=== PATIENT | female | born 1995 ===

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

== ENCOUNTER 2017-02-27 18:40 | Emergency (ER) | payer OTHER ==
--- NOTE | 2017-03-02 06:04 | ER ---
ADMIT: 02/27/2017 RM/LOC: ER [facility] MR#: [id number] [address] [id number] SAMANTHA FORTUNE [address] [place] [address] Emergency Room Report SEX: F AGE: 21 : 1995 CORRECTED: 02/28/2017 0701 NJV DATE: 02/27/2017 HISTORY OF PRESENT ILLNESS: The patient is a 21-year-old female who presents to the emergency room with low abdominal pain, 14 weeks' , one day with cramping and pressure. PHYSICAL EXAMINATION: VITAL SIGNS: Blood pressure 131/75, pulse 89, respirations 16, temperature 98.3, and O2 saturations 99%. Her expected date of confinement is 08/31/2017. She is 3, para 1, and 1. MEDICATIONS: She is taking multivitamins. ALLERGIES: TO PENICILLIN. PAST MEDICAL HISTORY: She has had a tonsillectomy as part of her past medical history and her blood type is O positive. PHYSICAL EXAMINATION: I do not see any vaginal discharge, although I did do a wet mount and Gen-Probe, low abdomen tenderness on palpation. EXTREMITIES: Well perfused. VAGINAL: External exam within normal limits. Speculum exam normal as well. NEURO: Oriented x4. test urine, positive. Wet mount; no clue cells, no Trichomonas, urobilinogen 4.0, leukocyte esterase trace, and hazy urine. Advised to increase fluids, take antibiotics for 7 days, follow up with Dr. Boyle for recheck of the urine again. heart tones are 154. She feels much better now that the heart tones have been found and she is going home with a prescription for cephalexin. RENETTA Disla / Pablo Ward MD / andrés JOB #: [id number] CC: Sae Young MD, Attending Physician UNKNOWN, Family Physician CORRECTED: 02/28/2017 0701 JEN
== END 2017-02-27 23:24 | disposition home or self-care (01) ==
LOC: ER 18:40
DX: O23.11 Infections of bladder in pregnancy, first trimester (principal); Z3A.14 14 weeks gestation of pregnancy; Z88.0 Allergy status to penicillin; Z90.89 Acquired absence of other organs; Z79.899 Other long term (current) drug therapy